=== PATIENT | female | born 1965 ===

== ENCOUNTER 2017-12-08 02:22 | Outpatient (CLI) | payer SELFPAY ==
[2017-12-08 10:34] LABS: HEMOGLOBIN A1C 5.4 % (4.5-6.2)
[2017-12-08 10:51] LABS: CHOL/HDL RATIO 3.54 (0.00-4.99)
== END 2017-12-08 23:59 | disposition home or self-care (01) ==
LOC: HW HEART 02:22
DX: Z13.6 Encounter for screening for cardiovascular disorders (principal)
CPT/HCPCS: 36415